=== PATIENT | female | born 1980 | race Caucasian/White ===

== ENCOUNTER 2020-04-25 20:05 | Emergency (ER) | payer BC ==
[2020-04-25 20:12] VITALS: TEMP 987.5; O2SAT 99
--- NOTE | 2020-04-25 20:30 | ED.PDOC ---
History of Present Illness - General Time Seen by Provider: 04/25/20 20:17 Source: patient, RN notes reviewed, Vital Signs reviewed Exam Limitations: no limitations - History of Present Illness Comments: Patient is a 40-year-old white female who was at the clinic today for complaints of cough, nonproductive, aches and nasal congestion with mild rhinorrhea. Patient denies any fevers. This is been ongoing for 4 days. The clinic sent her to the ED for further evaluation. Timing/Duration: other - 4 days Cough Quality/Degree: mild, dry cough Possible Cause: no prior episodes Improving Factors: nothing Worsening Factors: other - Deep breath increases the coughing Associated Symptoms: cough, muscle aches, nasal congestion, nasal drainage Respiratory Risk Factors: no cause identified Allergies/Adverse Reactions: Allergies NO KNOWN ALLERGY Allergy (Verified 04/25/20 20:12) Review of Systems - Review of Systems Constitutional: States: see HPI, malaise. Denies: chills, fever, weakness EENTM: States: see HPI, nose congestion. Denies: eye pain, blurred vision, double vision, ear pain, ear discharge, nose pain, throat pain, throat swelling Respiratory: States: see HPI, cough, short of breath - Mild. Denies: stridor, wheezing Cardiology: States: no symptoms reported. Denies: chest pain, palpitations, syncope Gastrointestinal/Abdominal: States: no symptoms reported. Denies: abdominal pain, diarrhea, nausea, vomiting Genitourinary: States: no symptoms reported Musculoskeletal: States: see HPI, muscle pain Skin: States: no symptoms reported. Denies: change in color, rash Neurological: States: no symptoms reported. Denies: tingling, weakness Endocrine: States: no symptoms reported. Denies: intolerance to cold, intolerance to heat Hematologic/Lymphatic: States: no symptoms reported All other Systems: Reviewed and Negative, No Change from Baseline Past Medical History (General) - Patient Medical History Hx Seizures: No Hx Stroke: No Hx Dementia: No Hx Asthma: No Hx of COPD: No Hx Cardiac Disorders: No Hx Congestive Heart Failure: No Hx Pacemaker: No Hx Hypertension: No Hx Thyroid Disease: No Hx Diabetes: No Hx Gastroesophageal Reflux: No Hx Renal Disease: No Hx Cancer: No Hx of HIV: No Hx Hepatitis C: No Hx MRSA: No Surgical History: other - Vaccination History Hx Tetanus, Diphtheria Vaccination: No Hx Influenza Vaccination: No Hx Pneumococcal Vaccination: No - Social History Hx Tobacco Use: Yes Hx Chewing Tobacco Use: Yes Hx Alcohol Use: No Hx Substance Use: No Hx Substance Use Treatment: No Hx Depression: No Feels Threatened In Home Enviroment: No Feels Threatened In a Relationship: No Hx Physical Abuse: No Hx Emotional Abuse: No Hx Suspected Abuse: No - Female History Patient is a Female of Child Bearing Age (10 -59 yrs old): Yes Patient : No Physical Exam - Physical Exam General Appearance: Alert, Anxious, Well Developed, Well Groomed, Well Hydrated, Well Nourished Eye Exam: bilateral normal ENT Exam: normal ENT inspection, hearing grossly normal, pharynx normal Neck: non-tender, full range of motion, supple, normal inspection, trachea midline Respiratory: chest non-tender, lungs clear, normal breath sounds, no respiratory distress, no accessory muscle use, other - Intermittent dry cough Cardiovascular/Chest: normal peripheral pulses, regular rate, rhythm, no edema, no gallop, no JVD, no murmur Gastrointestinal/Abdominal: normal bowel sounds, non tender, soft Extremity: normal range of motion, normal inspection Neurologic: marketing editor II-XII nml as tested, no motor/sensory deficits, alert, normal mood/affect, oriented x 3 Skin Exam: normal color, warm/dry Lymphatic: no adenopathy Progress - Progress Progress: 04/25/20 20:43 Differential diagnosis: Pneumonia, influenza, COVID, viral URI among others. 04/25/20 21:27 Patient's laboratory work is negative. COVID is pending. Chest x-ray is negative for infection. I suspect patient has a viral upper respiratory tract infection. I discussed this with the patient and she voices understanding and agreement with plan discharge home and safe isolation until her testing is completed. Ruslan Jovel M.D. #[id number] - Results/Orders Results/Orders: XR CHEST 1 VIEW HISTORY: Cough. COMPARISON: None. FINDINGS: The heart size is within normal limits. There is no pulmonary vascular congestion. No consolidation, pleural effusion, or pneumothorax is seen. The bony structures are preserved. IMPRESSION: No evidence of acute cardiopulmonary disease. Electronically signed by: Dayne Leonard MD 04/25/2020 8:38 PM CDT 04/25/20 20:25 SARS-COV2 RT-PCR HIGH RISK Stat STREP A SCREEN CULTURE Stat Laboratory Results - last 24 hr 04/25/20 20:25 Group A Strep Rapid Negative Influenza A: Negative Influenza B: Negative Vital Signs 04/25/20 04/25/20 20:07 21:06 Temperature 987.5 F H Pulse Rate [ 83 89 Pulse ox] Respiratory 16 16 Rate Blood Pressure 138/79 143/85 [Left Arm] O2 Sat by Pulse 99 99 Oximetry Departure - Departure Clinical Impression: Viral upper respiratory tract infection with cough Time of Disposition: 21:25 Disposition: Discharge to Home or Self Care Condition: Good Instructions: Viral Upper Respiratory Infection, Adult (DC), Coronavirus Disease 2019 (COVID-19) Diet: resume usual diet Activity: increase activity as tolerated Referrals: Rea Robbins MD [Primary Care Provider] - 1-5 Days Comments: Patient is to self isolate at home until her cover test has returned. I discussed this plan of care with the patient she voices understanding and agreement.
--- NOTE | 2020-04-25 20:40 | RAD ---
XR CHEST 1 VIEW HISTORY: Cough. COMPARISON: None. FINDINGS: The heart size is within normal limits. There is no pulmonary vascular congestion. No consolidation, pleural effusion, or pneumothorax is seen. The bony structures are preserved. IMPRESSION: No evidence of acute cardiopulmonary disease. Electronically signed by: Dayne Leonard MD 04/25/2020 8:38 PM CDT
[2020-04-25 21:19] VITALS: BP 143/85
== END 2020-04-25 21:37 | disposition home or self-care (01) ==
LOC: ER 20:05
DX: J06.9 Acute upper respiratory infection, unspecified (principal); F17.200 Nicotine dependence, unspecified, uncomplicated